=== PATIENT | female | born 1950 | race American Indian/Alaskan Native ===

== ENCOUNTER 2019-02-20 11:35 | Emergency (ER) | payer MEDICARE ==
--- NOTE | 2019-02-20 11:53 | Emergency Department Report ---
Blank Doc - Documentation Documentation: 69 y o female presents with left foot infection started with scratch x 1 month ago sates not healing since then and has gotten pus d/c inbetween 4th and 5th toe [facility] eval
[2019-02-20 11:54] VITALS: BP 142/90
--- NOTE | 2019-02-20 13:12 | Emergency Department Report ---
- General Chief Complaint: Wound/Laceration Stated Complaint: INFECTION IN TOE Time Seen by Provider: 02/20/19 11:52 Source: patient Mode of arrival: Ambulatory Limitations: No Limitations - History of Present Illness Initial Comments: Mrs. Caban is a 69-year-old female with history of COPD and chronic pain dependent on opioid medication presents with athlete's foot and skin infection. 6 weeks ago she developed athlete's foot in between her fourth and fifth toe. Over the last 2 weeks she has had redness blister of the fifth toe with swelling of the left foot. She has mild pain. She politely requests 2-4 week prescription for Percocet and Zanaflex and lorazepam. She recently moved from [place] one month ago to live with family. -: Gradual, week(s) (2) Extremity Location: Left: Foot - Related Data Previous Rx's Medication Instructions Recorded Last Taken Type Sulfamethoxazole/Trimethoprim 1 each PO BID 7 Days #14 tablet 02/20/19 Unknown Rx [Bactrim DS TAB] Terbinafine HCl [Lamisil At 1% 30 gm TP BID 21 Days #1 tube 02/20/19 Unknown Rx CREAM] cephALEXin [Keflex] 500 mg PO Q6HR 7 Days #28 capsule 02/20/19 Unknown Rx Allergies Allergy/AdvReac Type Severity Reaction Status Date / Time tetracycline Allergy Unknown Verified 02/20/19 11:38 ED Review of Systems ROS: Stated complaint: INFECTION IN TOE Other details as noted in HPI Constitutional: denies: fever, malaise Skin: lesions ED Past Medical Hx - Past Medical History Previous Medical History?: Yes Hx Hypertension: Yes Hx of Cancer: Yes (breast) Additional medical history: afib, DJD, osteoporosis - Surgical History Hx Breast Surgery: Yes (right mastectomy) - Social History Smoking Status: Light Tobacco Smoker Substance Use Type: None - Medications Home Medications: Home Medications Medication Instructions Recorded Confirmed Last Taken Type Sulfamethoxazole/Trimethoprim 1 each PO BID 7 Days #14 tablet 02/20/19 Unknown Rx [Bactrim DS TAB] Terbinafine HCl [Lamisil At 1% 30 gm TP BID 21 Days #1 tube 02/20/19 Unknown Rx CREAM] cephALEXin [Keflex] 500 mg PO Q6HR 7 Days #28 capsule 02/20/19 Unknown Rx ED Physical Exam - General Limitations: No Limitations General appearance: alert, in no apparent distress - ENT ENT exam: Present: normal exam - Neck Neck exam: Present: normal inspection, full ROM - Respiratory Respiratory exam: Present: wheezes. Absent: respiratory distress, rales, rhonchi, accessory muscle use, decreased breath sounds, prolonged expiratory - Cardiovascular Cardiovascular Exam: Present: regular rate, normal rhythm, normal heart sounds - Neurological Exam Neurological exam: Present: alert, oriented X3 - Psychiatric Psychiatric exam: Present: normal affect, normal mood - Other Other exam information: left foot: moist hypopigmented skin peeling in between 4th and 5th toes, blister fifth toe with 1 cm ecchymosis, left foot edema mild ED Course Vital Signs 02/20/19 11:52 Temperature 98.1 F Pulse Rate 76 Respiratory 18 Rate Blood Pressure 142/90 O2 Sat by Pulse 100 Oximetry ED Medical Decision Making - Medical Decision Making Tinea pedis with superinfection cellulitis left foot prescribed Keflex Bactrim Lamisil I politely explained why refill of Percocet Zanaflex Lorazepam would be inappropriate. She understood that she will need to obtain an outpatient medical physician. She does have Medicaid and Medicare. She was happy to receive referral to outpatient physician environmental professional. Critical care attestation.: If time is entered above; I have spent that time in minutes in the direct care of this critically ill patient, excluding procedure time. ED Disposition Clinical Impression: Tinea pedis, Cellulitis of left foot Disposition: [id number] TO HOME OR SELFCARE Is pt being admited?: No Does the pt Need Aspirin: No Condition: Stable Instructions: Tinea Pedis (ED), Cellulitis (ED) Prescriptions: Sulfamethoxazole/Trimethoprim [Bactrim DS TAB] 1 each PO BID 7 Days #14 tablet cephALEXin [Keflex] 500 mg PO Q6HR 7 Days #28 capsule Terbinafine HCl [Lamisil At 1% CREAM] 30 gm TP BID 21 Days #1 tube Referrals: PEDRITO HOYOS MD [Staff Physician] - 3-5 Days
== END 2019-02-20 14:47 | disposition home or self-care (01) ==
LOC: ED 11:35
DX: L03.116 Cellulitis of left lower limb (principal); B35.3 Tinea pedis; I10 Essential (primary) hypertension; Z85.3 Personal history of malignant neoplasm of breast; F17.200 Nicotine dependence, unspecified, uncomplicated
CPT/HCPCS: 99282